=== PATIENT | female | born 1995 | race Caucasian/White ===

== ENCOUNTER 2022-01-09 22:57 | Day surgery (SDC) | payer OTHER ==
[2022-01-10] MEDS ORDERED: hydrALAZINE 20 MG/ML VIAL SLOW IVP PRN (00:04)
== END 2022-01-10 02:11 | disposition home or self-care (01) ==
LOC: CSHLD/OP 22:57
PROVIDERS: ATTEND Advanced Practice Midwife
DX: O36.8130 Decreased fetal movements, third trimester, not applicable or unspecified (principal); Z3A.37 37 weeks gestation of pregnancy
CPT/HCPCS: 76819; 99282

== ENCOUNTER 2022-02-05 12:55 | Outpatient (CLI) | payer OTHER ==
[2022-02-05 22:57] LABS: SARS-CoV-2 PCR by NAA Not Detected (NotDetected)
== END 2022-02-05 12:56 | disposition home or self-care (01) ==
LOC: CSHLAB 12:55
PROVIDERS: ATTEND Advanced Practice Midwife
DX: Z20.822 Contact with and (suspected) exposure to COVID-19 (principal)
CPT/HCPCS: U0003; U0005

== ENCOUNTER 2022-02-07 05:30 | Inpatient (IN) | payer OTHER ==
[2022-02-07] MEDS ORDERED: Ondansetron PF 4 MG/2 ML Vial IVP PRN ×2 (05:51→12:49)
[2022-02-07] MEDS ORDERED: Diphenoxylate HCl/Atropine Tablet PO PRN (05:51)
[2022-02-07] MEDS ORDERED: Butorphanol Tartrate 1 MG/ML VIAL SLOW IVP PRN (05:51)
[2022-02-07] MEDS ORDERED: Promethazine HCl 25 MG/ML VIAL IM PRN ×2 (05:51→12:49)
[2022-02-07] MEDS ORDERED: hydrALAZINE 20 MG/ML VIAL SLOW IVP PRN (05:51)
[2022-02-07] MEDS ORDERED: Lidocaine 1% (PF) 30 ML VIAL SC PRN (05:51)
[2022-02-07] MEDS ORDERED: HYDROcodone/Acetaminophen 5/325 mg Tablet PO PRN ×2 (05:51)
[2022-02-07] MEDS ORDERED: Lactated Ringer's 1,000 ML IV SCH (05:51)
[2022-02-07] MEDS ORDERED: Methylergonovine 0.2 MG/ML VIAL IM PRN (05:51)
[2022-02-07] MEDS ORDERED: Ibuprofen 800 MG TAB PO PRN (05:51)
[2022-02-07] MEDS ORDERED: NS w/ Oxytocin 30 units 500 ML IV SCH ×2 (05:51)
[2022-02-07] MEDS ORDERED: Acetaminophen 500 MG TAB PO PRN (05:51)
[2022-02-07] MEDS ORDERED: Misoprostol 200 MCG TAB PR PRN (05:51)
[2022-02-07 06:23] VITALS: BMI 37.1
[2022-02-07 07:12] LABS: Hemoglobin 13.2 g/dL (12.0-15.5); Mean Corpuscular HGB CONC 31.7 g/dL (32.0-36.0); Mean Corpuscular Hemoglobin 23.8 pg (27.0-33.0); Platelet Count 178 10x3/uL (150-450); RBC Distribution Width 20.3 % (11.5-14.5); Red Blood Cell (RBC) Count 5.55 10x6/uL (3.90-5.03); White Blood Cell (WBC) Count 11.1 10x3/uL (3.5-10.5)
[2022-02-07 07:30] LABS: Syphilis Antibody Nonreactive (Nonreactive); Syphilis Antibody Index 0.05 S/CO (<1.00 Non-Reactive)
[2022-02-07 07:32] LABS: Hep B Surf Ag Non-Reactive S/CO (NonReactive)
[2022-02-07 07:36] LABS: HBSAg Index 0.19 S/CO (0-0.99)
[2022-02-07] MEDS ORDERED: Bupivacaine/Epinephrine 0.25% 30 ML VIAL ONE (08:00)
[2022-02-07] MEDS ORDERED: Fentanyl 2 mcg/Bup 0.1% Cadd 100 ML ONE (11:20)
[2022-02-07] MEDS ORDERED: Hydrocerin (Eucerin) Cream 120 gm Jar TOP PRN (12:49)
[2022-02-07] MEDS ORDERED: Lactated Ringer's 500 ML IV PRN (12:49)
[2022-02-07] MEDS ORDERED: Naloxone HCl 0.4 mg/ml Vial IVP PRN ×2 (12:49)
[2022-02-07] MEDS ORDERED: Acetaminophen 325 MG TAB PO PRN (12:49)
[2022-02-07] MEDS ORDERED: ePHEDrine Sulfate 50 MG/10 ML VIAL SLOW IVP PRN (12:49)
[2022-02-07] MEDS ORDERED: diphenhydrAMINE 50 MG/ML VIAL IVP PRN (12:49)
[2022-02-07] MEDS ORDERED: Communication Order-Pharmacy FS SCH (13:00)
[2022-02-07] MEDS: Fentanyl 2 mcg/Bupivacaine 0.1% Cassette 100 ML EPIDURAL SCH (19:51)
[2022-02-07] MEDS ORDERED: Calcium Carbonate 500 MG ChewTAB PO SCH (22:00)
[2022-02-08] MEDS: Fentanyl 2 mcg/Bupivacaine 0.1% Cassette 100 ML EPIDURAL SCH (01:45)
[2022-02-08] MEDS ORDERED: Ondansetron PF 4 MG/2 ML Vial IVP PRN (08:10)
[2022-02-08] MEDS ORDERED: Bisacodyl 10 MG SUPP PR PRN (08:10)
[2022-02-08] MEDS ORDERED: Milk Of Magnesia 30 ML UDCUP PO PRN (08:10)
[2022-02-08] MEDS ORDERED: NS w/ Oxytocin 30 units 500 ML IV SCH (08:10)
[2022-02-08] MEDS ORDERED: Lanolin Ointment 7 GM TUBE TOP PRN (08:10)
[2022-02-08] MEDS ORDERED: hydrALAZINE 20 MG/ML VIAL SLOW IVP PRN (08:10)
[2022-02-08] MEDS ORDERED: HYDROcodone/Acetaminophen 5/325 mg Tablet PO PRN ×2 (08:10)
[2022-02-08] MEDS ORDERED: Benzocaine-Menthol 82.5 ML CAN TOP PRN (08:10)
[2022-02-08] MEDS ORDERED: Methylergonovine 0.2 MG/ML VIAL IM PRN (08:10)
[2022-02-08] MEDS ORDERED: Misoprostol 200 MCG TAB VAG PRN (08:10)
[2022-02-08] MEDS ORDERED: Ferrous Sulfate 325 MG TAB PO SCH (08:30)
[2022-02-08] MEDS: Prenatal Vitamin 1 TAB PO SCH (11:22)
[2022-02-08] MEDS: Docusate 100 MG CAP PO SCH ×2 (11:22→21:26)
[2022-02-08] MEDS: Ibuprofen 800 MG TAB PO SCH ×2 (13:54→21:26)
[2022-02-08] MEDS: Ferrous Sulfate 325 MG TAB PO SCH (16:52)
[2022-02-09] MEDS: Ibuprofen 800 MG TAB PO SCH ×3 (05:37→21:30)
[2022-02-09] MEDS: Ferrous Sulfate 325 MG TAB PO SCH ×2 (07:28→19:01)
[2022-02-09] MEDS: Docusate 100 MG CAP PO SCH ×2 (08:55→21:30)
[2022-02-09] MEDS: Prenatal Vitamin 1 TAB PO SCH (08:56)
[2022-02-10] MEDS: Ibuprofen 800 MG TAB PO SCH (05:35)
[2022-02-10 08:05] VITALS: BP 127/74; TEMP 97.6
[2022-02-10] MEDS: Ferrous Sulfate 325 MG TAB PO SCH (08:17)
[2022-02-10] MEDS: Docusate 100 MG CAP PO SCH (08:27)
[2022-02-10] MEDS: Prenatal Vitamin 1 TAB PO SCH (08:27)
== END 2022-02-10 13:05 | disposition home or self-care (01) | DRG 807 ==
LOC: CSHLD 05:36 → CSHPP 02-08 10:00
PROVIDERS: ADMIT Obstetrics & Gynecology; ATTEND Pediatrics Neonatal-Perinatal Medicine
PROC: 3E033VJ Introduction of Other Hormone into Peripheral Vein, Percutaneous Approach (ICD-10-PCS; 2022-02-07)
PROC: 10907ZC Drainage of Amniotic Fluid, Therapeutic from Products of Conception, Via Natural or Artificial Opening (ICD-10-PCS; 2022-02-07)
PROC: 10E0XZZ Delivery of Products of Conception, External Approach (ICD-10-PCS; principal; 2022-02-08)
PROC: 0KQM0ZZ Repair Perineum Muscle, Open Approach (ICD-10-PCS; 2022-02-08)
DX: O48.0 Post-term pregnancy (principal); Z37.0 Single live birth; Z3A.41 41 weeks gestation of pregnancy; O99.344 Other mental disorders complicating childbirth; O99.02 Anemia complicating childbirth; D64.9 Anemia, unspecified; F32.A Depression, unspecified; O70.1 Second degree perineal laceration during delivery; O69.81X0 Labor and delivery complicated by cord around neck, without compression, not applicable or unspecified; F41.9 Anxiety disorder, unspecified; Z79.899 Other long term (current) drug therapy; Z79.82 Long term (current) use of aspirin; O76 Abnormality in fetal heart rate and rhythm complicating labor and delivery
CPT/HCPCS: 36415; 51702; 85027; 86780; 86850; 86900; 86901; 87340; J2590